=== PATIENT | male | born 1985 | race African-American/Black ===

== ENCOUNTER 2017-01-21 07:34 | Emergency (ER) | payer OTHER ==
[~2017-01-21] VITALS: Ht 170.2 cm; Wt 72.6 kg
[2017-01-21 08:15] VITALS: BP 141/69
== END 2017-01-21 08:35 | disposition other institution (70) ==
LOC: ED 07:34
DX: Z02.89 Encounter for other administrative examinations (principal); F12.90 Cannabis use, unspecified, uncomplicated